=== PATIENT | female | born 1990 | race Two or more races ===

== ENCOUNTER 2016-11-13 15:27 | Emergency (ER) | payer OTHER ==
[~2016-11-13] VITALS: Ht 165.1 cm; Wt 56.7 kg
--- NOTE | 2016-11-13 16:06 | PHYS DOC ---
Past Medical History Past Medical History: No Pertinent History Past Medical History Past Surgical History: No Surgical History Alcohol Use: None Drug Use: None Adult General Chief Complaint Chief Complaint: VAGINAL BLEEDING HPI HPI Patient is a 26 year old [f__sex] who presents with [] Review of Systems Review of Systems Constitutional: Denies fever or chills [] Eyes: Denies change in visual acuity, redness, or eye pain [] HENT: Denies nasal congestion or sore throat [] Respiratory: Denies cough or shortness of breath [] Cardiovascular: No additional information not addressed in HPI [] GI: Denies abdominal pain, nausea, vomiting, bloody stools or diarrhea [] : Denies dysuria or hematuria [] Musculoskeletal: Denies back pain or joint pain [] Integument: Denies rash or skin lesions [] Neurologic: Denies headache, focal weakness or sensory changes [] Endocrine: Denies polyuria or polydipsia [] Current Medications Current Medications Current Medications Medications (Trade) Dose Ordered Sig/Jared Start Time Stop Time Status Last Admin Dose Admin Sodium Chloride 500 ml @ 500 mls/hr Q1H 11/13/16 16:30 11/13/16 16:34 DC 11/13/16 16:34 500 MLS/HR Allergies Allergies Allergies Coded Allergies Type Severity Reaction Last Updated Verified No Known Drug Allergies 11/13/16 No Physical Exam Physical Exam Constitutional: Well developed, well nourished, no acute distress, non-toxic appearance. [] HENT: Normocephalic, atraumatic, bilateral external ears normal, oropharynx moist, no oral exudates, nose normal. [] Eyes: PERRLA, EOMI, conjunctiva normal, no discharge. [] Neck: Normal range of motion, no tenderness, supple, no stridor. [] Cardiovascular:Heart rate regular rhythm, no murmur [] Lungs & Thorax: Bilateral breath sounds clear to auscultation [] Abdomen: Bowel sounds normal, soft, no tenderness, no masses, no pulsatile masses. [Patient points to the area of the left lateral uterine area for the location of some cramping but that since resolved. Patient has a benign abdominal exam] Skin: Warm, dry, no erythema, no rash. [] Back: No tenderness, no CVA tenderness. [] Extremities: No tenderness, no cyanosis, no clubbing, ROM intact, no edema. [] Neurologic: Alert and oriented X 3, normal motor function, normal sensory function, no focal deficits noted. [] Psychologic: Affect normal, judgement normal, mood normal. [] Pelvic exam: External exam normal appearance speculum exam trace blood in the vaginal vault cervix is otherwise closed no active bleeding; no tenderness on the bimanual exam no masses palpable. Current Patient Data Vital Signs Vital Signs Date Time Temp Pulse Resp B/P (MAP) Pulse Ox O2 Delivery O2 Flow Rate FiO2 11/13/16 19:15 85 18 116/70 (85) 99 Room Air 11/13/16 15:42 98.5 98.5 Lab Values Laboratory Tests Test 11/13/16 14:49 11/13/16 15:40 11/13/16 16:00 POC Urine HCG, Qualitative Hcg positive (Negative) Urine Collection Type Unknown Urine Color Yellow Urine Clarity Cloudy Urine pH 7.5 Urine Specific [place] 1.025 Urine Protein Negative mg/dL (NEG-TRACE) Urine Glucose (UA) Negative mg/dL (NEG) Urine Ketones (Stick) Negative mg/dL (NEG) Urine Blood Small (NEG) Urine Nitrite Negative (NEG) Urine Bilirubin Negative (NEG) Urine Urobilinogen Dipstick 0.2 mg/dL (0.2 mg/dL) Urine Leukocyte Esterase Small (NEG) Urine RBC Occ /HPF (0-2) Urine WBC 1-4 /HPF (0-4) Urine Squamous Epithelial Cells Few /LPF Urine Amorphous Sediment Present /HPF Urine Bacteria Few /HPF (0-FEW) Urine Mucus Marked /LPF White Blood Count 9.7 x10^3/uL (4.0-11.0) Red Blood Count 4.04 x10^6/uL (3.50-5.40) Hemoglobin 13.4 g/dL (12.0-15.5) Hematocrit 38.5 % (36.0-47.0) Mean Corpuscular Volume 95 fL (79-100) Mean Corpuscular Hemoglobin 33 pg (25-35) Mean Corpuscular Hemoglobin Concent 35 g/dL (31-37) Red Cell Distribution Width 13.3 % (11.5-14.5) Platelet Count 263 x10^3/uL (140-400) Neutrophils (%) (Auto) 64 % (31-73) Lymphocytes (%) (Auto) 28 % (24-48) Monocytes (%) (Auto) 5 % (0-9) Eosinophils (%) (Auto) 2 % (0-3) Basophils (%) (Auto) 1 % (0-3) Neutrophils # (Auto) 6.2 x10^3uL (1.8-7.7) Lymphocytes # (Auto) 2.7 x10^3/uL (1.0-4.8) Monocytes # (Auto) 0.5 x10^3/uL (0.0-1.1) Eosinophils # (Auto) 0.2 x10^3/uL (0.0-0.7) Basophils # (Auto) 0.1 x10^3/uL (0.0-0.2) Maternal Serum HCG Beta Subunit 123 mIU/mL (0-6) H Laboratory Tests 11/13/16 16:00 Microbiology 11/13/16 Wet Prep - Final, Complete EKG EKG [] Radiology/Procedures Radiology/Procedures Pelvis ultrasound radiology report was reviewed which did not this demonstrated an IUP. There was trace free fluid. Patient's pain had been slightly to the left side earlier that has since resolved and there was no abnormal findings in the left adnexa. [] Course & Med Decision Making Course & Med Decision Making Pertinent Labs and Imaging studies reviewed. (See chart for details) [] Discussed her low quantitative hCG and equivocal sonogram findings and she isn't clear understanding to follow up with her personal EVENT AV OPERATOR (doctor maciel )by no later than Saturday for repeat quantitative hCG and abdominal exam. Prior to Dismissal patient's abdomen was completely benign and she was otherwise stable. 1840: This case with Dr. Joseph Wilson EVENT AV OPERATOR covering for Dr. Urvashi maciel. Discussed labs and ultrasound results and he agrees with outpatient follow-up in 48 hours for repeat lab draw. Dragon Disclaimer Dragon Disclaimer This electronic medical record was generated, in whole or in part, using a voice recognition dictation system. Departure Departure Impression: Primary Impression: Threatened miscarriage in early Disposition: HOME, SELF-CARE Condition: STABLE Referrals: NO PCP (PCP) RESHMA BYERS MD November 13, 2016 16:06
[2016-11-13] MEDS ORDERED: IV NORMAL SALINE 500ML BAG 500 ML IV SCH (16:30)
[2016-11-13 16:44] LABS: BASO # 0.1 x10^3/uL (0.0-0.2); BASO % 1 % (0-3); EOS % 2 % (0-3); HEMATOCRIT 38.5 % (36.0-47.0); HEMOGLOBIN 13.4 g/dL (12.0-15.5); LYMPH # 2.7 x10^3/uL (1.0-4.8); LYMPH % 28 % (24-48); MEAN CORPUSCULAR HEMOGLOBIN 33 pg (25-35); MEAN CORPUSCULAR HGB CONC 35 g/dL (31-37); MEAN CORPUSCULAR VOLUME 95 fL (79-100); MONO % 5 % (0-9); NEUT % 64 % (31-73); PLATELET COUNT 263 x10^3/uL (140-400); RED BLOOD COUNT 4.04 x10^6/uL (3.50-5.40); RED CELL DISTRIBUTION WIDTH 13.3 % (11.5-14.5); WHITE BLOOD COUNT 9.7 x10^3/uL (4.0-11.0)
[2016-11-13 16:58] LABS: BILIRUBIN,URINE NEGATIVE (NEG); GLUCOSE,URINE NEGATIVE (NEG); NITRITE,URINE NEGATIVE (NEG); PH,URINE 7.5; PROTEIN,URINE NEGATIVE (NEG-TRACE); UROBILINOGEN,URINE 0.2 mg/dL (0.2 mg/dL)
[2016-11-13 17:05] LABS: BACTERIA,URINE FEW /HPF (0-FEW); RBC,URINE OCC /HPF (0-2); SQUAMOUS EPITHELIAL CELL,UR FEW /LPF
--- NOTE | 2016-11-13 17:52 | RAD ---
Obstetrical ultrasound less than 14 weeks with transvaginal imaging HISTORY: Vaginal bleeding during COMPARISON: None FINDINGS: Multiple transabdominal sonographic images of the pelvis are submitted. Uterus measured 10.1 x 5.5 x 7.3 cm. Endometrium measured 2 cm. No intrauterine gestational sac is demonstrated. Right ovary measured 2.5 x 3.2 x 2.1 cm with normal low resistance vascularity. Left ovary measured 2 x 3 x 1.9 cm with normal resistance vascularity. Transvaginal ultrasound: Multiple transvaginal sonographic images of the pelvis are submitted. No intrauterine gestational sac is identified. Right ovary measured 2 x 4.4 x 1.8 cm with normal low resistance vascularity. There is a focus of different echogenicity of the right ovary up to 1.9 x 1.8 x 1.4 cm not associated with significant hypervascularity. This internally is partially hypoechoic. Left ovary measured 2.2 x 3.3 x 2.4 cm with normal resistance vascularity. There is a small quantity of free fluid in the posterior cul-de-sac. IMPRESSION: 1. No intrauterine is identified at this time. There is a small quantity of free fluid in the posterior cul-de-sac. Close interval follow-up imaging and correlation with quantitative beta hCG values may be beneficial. Focus of different echogenicity of the right ovary is more suggestive of a complex or hemorrhagic cyst up to 1.9 cm. Electronically signed by: Jagdeep Acosta MD (11/13/2016 5:49 PM)
[2016-11-13 19:15] VITALS: BP 116/70
== END 2016-11-13 19:15 | disposition home or self-care (01) ==
LOC: ER 15:27
DX: O20.0 Threatened abortion (principal); Z3A.08 8 weeks gestation of pregnancy
CPT/HCPCS: 36415; 76801; 76817; 81001; 81025; 84702; 85027; 86901; 87086; 87491; 87591; 99285; J7040; Q0111